=== PATIENT | male | born 1990 | race Hispanic/Latino ===

== ENCOUNTER 2020-08-26 18:17 | Emergency (ER) | payer OTHER ==
[2020-08-26] MEDS ORDERED: Ketorolac Tromethamine 60 MG/2 ML VIAL ONE (18:36)
[2020-08-26] MEDS ORDERED: Cyclobenzaprine 10 MG TAB ONE (18:36)
== END 2020-08-26 19:02 ==
LOC: NAV ERS 18:17
DX: M62.838 Other muscle spasm (principal); I10 Essential (primary) hypertension
CPT/HCPCS: 96372; 99283; J1885